=== PATIENT | female | born 1995 | race Caucasian/White ===

== ENCOUNTER 2016-06-16 17:18 | Emergency (ER) | payer OTHER ==
[2016-06-16 18:30] VITALS: BP 119/62
--- NOTE | 2016-06-16 19:22 | UC ---
FLU HPI - HPI Summary HPI Summary: 3 day history of chills, coryza, dry cough, malaise, fatigue and myalgias. Hx of fibromyalgia, and tends to get very achey with infections or if run down. Has not taken temp, no fever here, but has been using ibuprofen all day. No flu shot this year, all room mates sick. - History of Current Complaint Chief Complaint: UCGeneralIllness Stated Complaint: COUGH,CONGESTION Time Seen by Provider: 06/16/16 19:03 Hx Obtained From: Patient Hx Last Menstrual Period: 06/16/16 Onset/Duration: Gradual Onset, Lasting Days - 3 Severity Currently: Mild Severity Initially: Moderate Associated Signs & Symptoms: Positive: Fever, Sore Throat, Nasal Congestion, Headache - Allergy/Home Medications Allergies/Adverse Reactions: Allergies Allergy/AdvReac Type Severity Reaction Status Date / Time No Known Allergies Allergy Verified 06/16/16 18:25 Home Medications: Home Medications GuaiFENesin DM* [Robitussin DM*] 5 ml PO Q6H PRN 06/16/16 [History Confirmed ] Ibuprofen TAB* [Motrin TAB* 600 MG] 600 mg PO Q6H PRN 06/16/16 [History Confirmed 06/16/16] PMH/Surg Hx/FS Hx/Imm Hx Previously Healthy: Yes - Surgical History Surgical History: None - Family History Known Family History: Positive: Other - mom had flu earlier this month Negative: Hypertension, Diabetes - Social History Occupation: [employer] Lives: With Family - with school mates. Alcohol Use: Occasionally Substance Use Type: None Smoking Status (MU): Never Smoked Tobacco Review of Systems Constitutional: Fever, Fatigue Skin: Negative Eyes: Negative ENT: Sore Throat Respiratory: Cough Cardiovascular: Negative Gastrointestinal: Negative Genitourinary: Negative Motor: Negative Neurovascular: Negative Musculoskeletal: Myalgia Neurological: Headache Psychological: Negative All Other Systems Reviewed And Are Negative: Yes Physical Exam Triage Information Reviewed: Yes Appearance: No Pain Distress, Thin - looks mildly unwell Vital Signs: Initial Vital Signs Temp 98.5 F 06/16/16 18:26 Pulse 83 06/16/16 18:26 Resp 16 06/16/16 18:26 BP 119/62 06/16/16 18:26 Pulse Ox 100 06/16/16 18:26 Vital Signs Reviewed: Yes Eyes: Positive: Conjunctiva Clear ENT: Positive: Pharynx normal, TMs normal Neck exam: Normal Neck: Positive: Supple, Nontender, No Lymphadenopathy Respiratory: Positive: Chest non-tender, Lungs clear Cardiovascular: Positive: RRR, No Murmur Abdomen Description: Positive: Nontender, No Organomegaly Musculoskeletal Exam: Normal Neurological Exam: Normal Psychological Exam: Normal Skin Exam: Normal Flu Course/Dx - Course Course Of Treatment: symptomatic treatment of likely influenza. codeine cough suppressant. [facility] search # [id number] - Differential Dx/Diagnosis Differential Diagnosis/HQI/PQRI: Influenza, Upper Respiratory Infection Provider Diagnoses: influenza like illness. Discharge - Discharge Plan Condition: Stable Disposition: HOME Prescriptions: Guaifenesin-Codeine [Codeine/Guaifenesin 100-10 mg/5Ml] 10 ml PO Q6H PRN #250 ml MDD 40ml PRN Reason: Cough Patient Education Materials: Influenza (ED) Additional Instructions: You do not have any findings suggestive of bacterial illness; this is likely flu. Continue ibuprofen as needed for pain or fever. You have a prescription for a codeine cough suppressant to help with sleep; this can be picked up from the pharmacy tomorrow. Return if you have increasing shortness of breath or do not see signs of improvement over the next 3 or 4 days.
== END 2016-06-16 19:37 | disposition home or self-care (01) ==
LOC: UCCORT 17:18
DX: J11.1 Influenza due to unidentified influenza virus with other respiratory manifestations (principal)
CPT/HCPCS: 99212; G0463

== ENCOUNTER 2016-08-07 16:00 | Emergency (ER) | payer OTHER ==
[2016-08-07 16:56] VITALS: BP 134/84
[2016-08-07] MEDS ORDERED: Ibuprofen TAB* 400 MG PO ONE (17:01)
--- NOTE | 2016-08-07 17:09 | UC ---
UC General HPI - HPI Summary HPI Summary: complaint of nasal congestion and cough that started 2 days ago -fever and chills -muscle aches -intermittent headaches - sore throat -took some advil and robitussin with minimal relief -had influenza in june but this feels worse - History of Current Complaint Chief Complaint: UCGeneralIllness Stated Complaint: ACHY/SORE THROAT/COUGH Time Seen by Provider: 08/07/16 16:57 Hx Obtained From: Patient - Allergy/Home Medications Allergies/Adverse Reactions: Allergies Allergy/AdvReac Type Severity Reaction Status Date / Time No Known Allergies Allergy Verified 08/07/16 16:47 Home Medications: Home Medications Ibuprofen TAB* [Advil TAB*] 200 mg PO Q6H PRN 08/07/16 [History Confirmed ] PMH/Surg Hx/FS Hx/Imm Hx Previously Healthy: Yes - Surgical History Surgical History: None - Family History Known Family History: Positive: Other - mom had flu earlier this month Negative: Cardiac Disease, Hypertension, Diabetes - Social History Occupation: Student Alcohol Use: Occasionally Substance Use Type: None Smoking Status (MU): Never Smoked Tobacco - Immunization History Most Recent Influenza Vaccination: NO Review of Systems Constitutional: Fever, Chills, Fatigue Skin: Negative Eyes: Negative ENT: Sore Throat, Ear Ache, Nasal Discharge Respiratory: Cough Cardiovascular: Negative Gastrointestinal: Negative Genitourinary: Negative Motor: Negative Neurovascular: Negative Musculoskeletal: Myalgia Neurological: Headache Psychological: Negative All Other Systems Reviewed And Are Negative: Yes Physical Exam Triage Information Reviewed: Yes Appearance: Ill-Appearing Vital Signs: Initial Vital Signs Temp 100.3 F 08/07/16 16:49 Pulse 103 08/07/16 16:49 Resp 20 08/07/16 16:49 BP 134/84 08/07/16 16:49 Pulse Ox 99 08/07/16 16:49 Vital Signs Reviewed: Yes Eyes: Positive: Conjunctiva Clear ENT: Positive: Pharyngeal erythema, Nasal congestion, Nasal drainage, TMs normal Neck: Positive: No Lymphadenopathy. Negative: Nuchal Rigidity Respiratory: Positive: Lungs clear, Normal breath sounds, No respiratory distress, No accessory muscle use Cardiovascular: Positive: RRR, No Murmur, Pulses Normal Abdomen Description: Positive: Nontender, No Organomegaly, Soft Bowel Sounds: Positive: Present Musculoskeletal: Positive: No Edema Neurological: Positive: Alert Psychological Exam: Normal Skin Exam: Normal Course/Dx - Differential Dx - Multi-Symptom Differential Diagnoses: Other - influenza, pharyngitis, viral syndrome Provider Diagnoses: influenza Discharge - Discharge Plan Condition: Stable Disposition: HOME Patient Education Materials: Influenza (ED) Referrals: Non Staff,Doctor [Primary Care Provider] - [facility] [place] [facility]FERRAL [Outside] Additional Instructions: start tamiflu as directed TREATING THE FLU (Influenza) What is the Flu? Influenza, or "flu," is an infection of the breathing tubes and lungs. Flu happens mostly in late fall, winter, or early spring. It is very easily spread from one person to another by coughing and sneezing. The flu affects people of all ages. Symptoms Might Include: Stuffed up or runny nose Cough which may be worse at night that lasts for one to two weeks Fever especially the first 2 days and which may go up and down Headache and muscle aches Mild sore throat Poor appetite Tiredness Influenza (Flu) Vaccine Much of the illness and caused by influenza can be prevented by annual flu vaccination. It is especially recommended for people who are at high risk. Those at higher risk include all people aged 65 years or older and people of any age with chronic diseases of the heart, lung or kidneys, diabetes, immunosuppression, or severe forms of anemia. Other high-risk groups are, women who will be more than 3 months during the flu season, and children. Treatment Recommendations: Take acetaminophen (Tylenol, etc.) for aches and fever. Do not ever give aspirin to children. Drink lots of fluids. Use a cool-mist humidifier night and day if it helps you. Keep room at a comfortable temperature for you. Do not overheat the room. Do not overdress. Do not smoke. Get as much rest as you can. Call Your Doctor or Return Here IF: You have a fever that lasts for more than three days. You have trouble breathing. You begin to cough up green, yellow, or red mucous. Your cough gets worse or you have chest pain with coughing or deep breathing. You start to have any other symptoms that worry you.
== END 2016-08-07 17:36 | disposition home or self-care (01) ==
LOC: UCCORT 16:00
DX: J11.1 Influenza due to unidentified influenza virus with other respiratory manifestations (principal)
CPT/HCPCS: 87502; 99212; A9270-GY; G0463